=== PATIENT | female | born 1955 | race Caucasian/White ===

== ENCOUNTER → 2017-07-03 | Outpatient (CLI) | payer BC ==
[2017-07-03 17:04] LABS: BASO % 0.4 %; BASO ABS # 0.03 K/uL (0-0.2); COMPLETE YES; EOS % 0.8 %; HEMATOCRIT 39.1 % (37-47); IG% 0.1 %; LYMPH % 41.3 %; LYMPH ABS # 3.29 K/uL (1.2-3.4); MEAN CELL VOLUME 91.8 fL (80-100); MEAN CORPUSCULAR HEMOGLOBIN 31.5 pg (25-34); MEAN CORPUSCULAR HGB CONC 34.3 g/dl (32-36); MONO % 8.7 %; NEUT % 48.7 %; PLATELET COUNT 316 K/uL (130-400); RED BLOOD COUNT 4.26 M/uL (4.2-5.4); WHITE BLOOD COUNT 7.96 K/uL (4.8-10.8)
[2017-07-03 17:17] LABS: ALT/SGPT 16 U/L (12-78); BLOOD UREA NITROGEN 15 mg/dl (7-18); BUN/CREATININE RATIO 26.4 (10-20); CALCIUM 9.5 mg/dl (8.5-10.1); CARBON DIOXIDE 26 mmol/L (21-32); CHLORIDE 104 mmol/L (98-107); CHOLESTEROL 214 mg/dl (0-200); CREATININE 0.56 mg/dl (0.60-1.20); GLUCOSE 96 mg/dl (70-99); POTASSIUM 4.2 mmol/L (3.5-5.1); SODIUM 138 mmol/L (136-145)
[2017-07-03 17:21] LABS: ALB/GLOB RATIO 1.1 (0.9-2); ALKALINE PHOSPHATASE 104 U/L (45-117); AST/SGOT 19 U/L (15-37); CHOLESTEROL/HDL RATIO 2.2; HDL CHOLESTEROL 98 mg/dl; LDL CHOLESTEROL CALCULATED 106 mg/dl; TRIGLYCERIDES 49 mg/dl (0-150); VERY LOW DENSITY LIPOPROT CALC 10 mg/dl
--- NOTE | 2017-07-07 12:53 | CODING QUERY MEDICAL NECESSITY ---
SUPPORTING DIAGNOSIS NEEDED Dr. Hubbard, A supporting diagnosis is required for the test/procedure performed on this patient in order for us to be reimbursed by the patient's insurance. Please provide a supporting diagnosis for the following test/procedure listed below next to the test name along with your signature. *If there is no additional diagnosis for this patient that would support the following test/procedure please document that below next to the test/procedure. Test(s)/Procedure(s) that require a supporting diagnosis: * ([id number]) VITAMIN D ASSAY DIAGNOSIS: * ([id number]) B12 VITAMIN LEVEL DIAGNOSIS: DATE OF SERVICE: 07/03/17 Provider Signature: Date: Thank you Bernardo Ryan [facility] Information Management Once completed, please kindly fax back to [phone] For questions please call [phone]
== END | disposition home or self-care (01) ==
LOC: C.LABBC 12:54
PROVIDERS: ATTEND Internal Medicine
DX: D64.9 Anemia, unspecified (principal); Z13.220 Encounter for screening for lipoid disorders

== ENCOUNTER 2023-06-16 11:11 | Observation (INO) ==
--- NOTE | 2023-06-15 15:58 | Anesthesiology Consultation ---
Date of Service June 15, 2023 Assessment & Plan (1) Encounter for pre-operative examination: - PCP visit (06/14/23): "Patient fell down the stairs last night and landed on the right shoulder and right wrist. The wrist is swollen and bruised. Patient has very little mobility in the right arm. Ordered an xray of the right shoulder and wrist. Discussed that pending the results, will likely refer to ortho or PT. Instructed patient to rest,ice and elevate the wrist and arm.. May use NSAIDS or tylenol" - Infectious disease screening: Per vacuum pan tender on 06/15/23: No known infectious disease contacts or current infectious disease symptoms. No noted Covid positive test result in past 90 days. Chart Review Chart Review: Acceptable Risk for Surgery and Patient NOT seen in Pre Admission Testing History Surgery Operation Date: 06/16/23 13:00 Proposed Procedures p Right Humeral Nail vs Open Reduction Internal Fixation - Demarco Morrison MD Height/Weight Height: 4 ft 10.75 in Weight: 48.534 kg Allergies Allergy/AdvReac Type Severity Reaction Status Date / Time Sulfa (Sulfonamide Allergy Unknown Unknown Verified 06/15/23 14:21 Antibiotics) Medications Home Medications Medication Instructions Recorded Confirmed Last Taken tumeric 100 mg-amaya 150 mg-olive 1 cap PO QDL 02/01/22 06/15/23 Unknown 50 mg-oreg 150 mg-caprylate capsule acetaminophen 325 mg capsule 650 mg PO BID PRN fever #180 caps 01/26/23 06/15/23 Unknown calcium carbonate 600 mg calcium 1,200 mg PO QDL 01/26/23 06/15/23 Unknown (1,500 mg) tablet amoxicillin 500 mg capsule 500 mg PO .COMPLEX #4 caps 03/28/23 06/15/23 Unknown oxycodone-acetaminophen 2.5 mg-325 1 tab PO Q6H PRN pain #4 tabs 06/14/23 06/14/23 Unknown mg tablet (Percocet) cholecalciferol (vitamin D3) 50 2,000 unit PO QDL 06/15/23 06/15/23 Unknown mcg (2,000 unit) capsule cyanocobalamin (vitamin B-12) 100 100 mcg PO QDL 06/15/23 06/15/23 Unknown mcg tablet (Vitamin B-12) folic acid 1 mg tablet 1 mg PO QDL 06/15/23 06/15/23 Unknown thiamine HCl (vitamin B1) 100 mg 100 mg PO QDL 06/15/23 06/15/23 Unknown tablet (Vitamin B-1) Past Medical History Medical History History of quadriplegia Osteoporosis Spinal cord injury, cervical region 8 years ago from fall- states quadraplegic x 8 mo but has since "resolved" following surgery + rehab Urinary incontinence Past Family History Family History Brother Brain tumor Mother Hypertension Father Hypotension Other No family history of adverse response to anesthesia Denies family history of Ovarian cancer Prostate cancer Myocardial infarction Breast cancer Colorectal cancer Past Surgical History Surgical History History of cervical spinal surgery r/t injury from fall 8 years ago. ROM limited side to side per pt report. S/P wrist surgery Fracture repair - Rt Social History Smoking Status: Never smoker Do You Dip or Chew Tobacco: No Hx Alcohol Use: Yes Alcohol type: beer and wine alcohol intake frequency: 0-2 drinks per day Hx Substance Use: No substance use type: does not use Lab Results Anesthesia Preop Results Results Anesthesia Widget: WBC 9.90 K/ul (4.8-10.8) 06/15/23 Hgb 11.3 g/dl (12.0-16.0) L 06/15/23 Hct 32.6 % (37.0-47.0) L 06/15/23 Plt 308 K/uL (130-400) 06/15/23 Na 133 mmol/L (136-145) L 06/15/23 K 3.9 mmol/L (3.5-5.1) 06/15/23 Cl 98 mmol/L (98-107) 06/15/23 CO2 27 mmol/L (21-32) 06/15/23 BUN 17 mg/dl (6-23) 06/15/23 Creat 0.47 mg/dl (0.6-1.2) L 06/15/23 Glucose Level 111 mg/dl (70-99(Fasting)) H 06/15/23 TSH 2.009 uIu/ml (0.300-4.500) 06/15/23 Testing Electrocardiogram Date: 06/15/23 Findings: + NSR @ (39)
[~2023-06-16 11:11] MED LIST: LACTATED RINGER'S 1,000 ML IV SCH; LR 15ML/HR IV SCH; ROPIVACAINE 0.5% 5 MG/ML 30 ML VIAL ONE; ceFAZolin 2000MG 2,000 MG/15 ML SYR IV SCH
[2023-06-16] MEDS ORDERED: fentaNYL citrate PF 100 MCG/2 ML VIAL IV PRN (12:28)
[2023-06-16] MEDS ORDERED: PROMETHAZINE HCL 6.25 MG in SODIUM CHLORIDE 0.9% 50 ML IV PRN (12:28)
[2023-06-16] MEDS ORDERED: ONDANSETRON INJ 2 MG/ML 2 ML VIAL IV PRN ×2 (12:28→18:37)
[2023-06-16] MEDS ORDERED: ATROPINE SULFATE 0.1 MG/ML 10ML SYR IV PRN (12:28)
[2023-06-16] MEDS ORDERED: ePHEDrine sulfate 50 MG/ML AMP IV PRN (12:28)
[2023-06-16] MEDS ORDERED: PHENYLEPHRINE HCL 10 MG/ML VIAL ONE (12:33)
[2023-06-16] MEDS ORDERED: ONDANSETRON INJ 2 MG/ML 2 ML VIAL ONE (12:33)
[2023-06-16] MEDS ORDERED: PROPOFOL IV EMULSION 10 MG/ML 20 ML VIAL IV ONE (12:33)
[2023-06-16] MEDS ORDERED: DEXAMETHASONE SOD INJ 4 MG/ML VIAL ONE (12:33)
[2023-06-16] MEDS ORDERED: LIDOCAINE 2% 2 ML VIAL/AMP(20MG/ML) INFIL ONE (12:33)
[2023-06-16] MEDS ORDERED: ROCURONIUM BROMIDE 10 MG/ML 5 ML VIAL IV ONE (12:33)
[2023-06-16] MEDS ORDERED: fentaNYL citrate PF 100 MCG/2 ML VIAL ONE ×3 (12:34→16:55)
[2023-06-16] MEDS ORDERED: MIDAZOLAM HCL 1 MG/ML 2ML VIAL ONE ×2 (12:34→12:52)
--- NOTE | 2023-06-16 12:54 | History & Physical Bridge Note ---
Date of Service June 16, 2023 History & Physical Bridge Note I have examined the patient, reviewed the History & Physical and in the interval since the performance of the History & Physical I have noted the following changes of clinical significance: no changes noted
[2023-06-16] MEDS ORDERED: TRANEXAMIC ACID / 0.7% NACL 1000MG/100ML BAG IV ONE (13:26)
--- NOTE | 2023-06-16 16:49 | Operative Report ---
Post Operative Report Pre & Post Diagnosis Operation Date: 06/16/23 13:00 Pre-Op Diagnosis: Fracture of Humerus, Proximal, Right Closed Post-Op Diagnosis: Fracture of Humerus, Proximal, Right Closed I identified the patient and participated in the time-out.: Yes Procedure Operation Date: 06/16/23 13:00 Actual Procedures p Short multi lock nail right proximal humerus fracture(Right) - Demarco Morrison MD Surgeon Demarco Morrison MD Specialty Plant Supervisor Sang Vera fellow Estimated Blood Loss 10 Findings Consistent with Post-Op Diagnosis Specimens None Anesthesia Type General Regional Complications none Disposition Accompanied Patient To Recovery: No Disposition: Recovery Room Indications Marium is 67. She has osteoporosis. She has also had a C4 quadriplegia secondary to cervical spinal stenosis and a fall. She had cervical decompression and fusion and made a miraculous recovery. She still has some left-sided motor deficits and spasticity. She fell several days ago going down the steps injuring her right shoulder. She has a widely displaced and comminuted fracture involving the surgical neck of the right humerus. Her treatment options were discussed. I recommended operative intervention in the form of a nail. She agreed to proceed. Description of Procedure Informed consent. Patient identified. She identified the operative site as the right shoulder. I marked with my initials. Preoperative surgical timeout was performed. A preop dose of IV antibiotics was given. She was taken to the operating room where the anesthetic was administered. She was then positioned on the radiolucent Adi table with the right side elevated towards lateral about 45 degrees. Axillary roll inserted. Bony prominences of both lower extremities were inspected and padded. DVT prophylaxis with foot pumps and postoperatively early mobility. The torso was secured to the table. Hinckley bolsters were applied along her backside to support her. Fluoroscopic imaging was then obtained to document the ability to get the Grashey AP and transscapular view of the right shoulder. The arm was then scrubbed and then prepped and draped in the usual sterile fashion. There was swelling and bruising of the right arm area. TXA given. Fluoroscopic guidance was utilized throughout the surgical procedure. I made an incision beginning just anterior to the AC joint on the top of the acromion and extending anteriorly towards the deltopectoral interval. Subcutaneous flaps were elevated at the level of the deltoid fascia. I then split the fascia midway between the anterior acromion and the AC joint and bluntly divided the deltoid muscle along the line of its fibers for about a distance of 4 cm. Bursa removed. I then put a traction stitch into the rotator cuff tissue which was robust. This helped to take the head out of abduction. I then used a spinal needle to gauge the starting hole. I still needed to be a little bit more medial and posterior. I then under fluoroscopic guidance inserted to 2 mm K wires 1 anterior and 1 posterior heading at superior to inferior angle about 30 degrees. By pulling on these towards the feet and twisting I was able to derotate the humeral head. To fully access this area I had to elevate half centimeter of the deltoid and remove a couple millimeters of the anterior acromion in order to get the right trajectory. The guidepin was introduced at the center of the humeral head apex on both the AP and lateral views and advanced parallel to the shaft. Of note once she was relaxed with paralytic the fracture reduced very easily. After confirming placement of the guidepin it was overreamed and then the long guidewire was inserted. This was confirmed to be intramedullary in multiplanar fluoroscopy. I then assembled inserted the short Synthes multi lock nail under hand power. Prior to this I passed the 9 mm reamer confirming adequate space for the mckenzie. The mckenzie was countersunk about 5 mm. This was verified by using the lateral pin and checking fluoroscopically. I was able to insert my finger through the splint in the anterior deltoid and identify the bicipital tuberosity. I then rotated the insertion apparatus so that the anterior pin would enter the humerus just lateral to the biceps groove. A guidepin was then introduced to hold the mckenzie in position. I then inserted the lateral screw. Screw technique was to incise the skin at the level of the trocar plan I dissected bluntly dissect down to the bone and advanced the trocar to the bone and then advanced the drill to the far cortex without perforating it. A screw of several millimeters shorter than what was measured was then inserted. This was done for the lateral and posterior screws however the anterior screw was more challenging because of the significant comminution and bone void posteriorly. I had to estimate screw length which was probably shorter than it could have been but I went shorter to be safe. The fracture was well aligned and there was good bony apposition. The distal interlocks were then inserted using the distal interlocking insertion guide through percutaneous incisions using the same technique. Screw position distally was confirmed in multiplanar fluoroscopy. The proximal jig was removed. The humeral head was then rotated in both the AP and lateral planes and screw length was checked and confirmed to be within the bone and not violating the joint surface. The proximal apparatus was removed and a 2 mm endcap was inserted. The end cap was visually confirmed to be below the level of the subchondral bone when fully inserted. I double checked for tightness. Hardware was in good position. The fracture was well reduced and stable. All wounds were copiously irrigated with sterile saline. The percutaneous screw incisions were closed with 3-0 Vicryl for the dermal layer and herb on the skin. The deltoid split became a little longer than 4 cm. Partly I think because of the anterior screw. That insertion and dissection may have opened the lower part of the deltoid in the same plane. I did not directly palpate the axillary nerve. I then went ahead and carefully reapproximated the deltoid with interrupted #1 Vicryl. Proximally I reapproximated the half centimeter I detachment the deltoid with a #1 Ethibond on an os for needle using a suture passed through the acromion bone. This was further reinforced with interrupted #1 Vicryl's and a running #1 Vicryl as well. Skin was then closed with 3-0 Vicryl and herb. The rotator cuff was closed prior to more superficial layers by reapproximating the 2 traction stitches that I had previously applied and tying them. Then I then applied a medial and lateral Ethibond [id number] stitch for a watertight closure. The rotator cuff was split in line with its fibers. The arm was cleaned with wet and dry sponges and a soft sterile dressing was applied Xeroform 4 x 4's ABD including the armpit and foam tape. A full-length Masoud wrap from the hand up to the upper arm was then applied and a wrist brace was reapplied. She had injured her wrist. X-rays were negative. For precaution I was continuing to apply a brace. Patient was wake from anesthesia difficulty and taken to the recovery room in stable condition. There were no specimens or complications. Counts were correct and blood loss is estimated to be 20 cc. At the conclusion the operation spoke to patient's informed of my findings postop instructions were given. Plan is to admit her to the hospital overnight for pain control. Arm in the sling. We will get her doing active movement of elbow and some shoulder pendulums. Gas Inspector fluoroscopic images were obtained. After the endcap was inserted but after the wounds were entirely closed except for the herb I got an Grashey view as I did not have one with the mckenzie insertion apparatus attached. The end cap was then placed but may not of been fully seated. Is possible that it may have been cross threaded. I was reassured because a double checked for tightness and visually observed that it was both below the subchondral bone. I elected to leave as is. The components inserted were the Synthes 8 mm titanium multi lock proximal right nail 160 mm of length. There are 3 proximal multi lock screws a 2 mm end cap and 2 distal interlocking screws. The proximal screws were checked in multiplanar fluoroscopy to ensure that they were seated both laterally and did not violate the joint. I attest to the content of the Intraoperative Record and any orders documented therein. Any exceptions are noted below.
--- NOTE | 2023-06-16 17:06 | Operative Report ---
Post Operative Report Pre & Post Diagnosis Operation Date: 06/16/23 13:00 Pre-Op Diagnosis: Fracture of Humerus, Proximal, Right Closed Post-Op Diagnosis: Fracture of Humerus, Proximal, Right Closed I identified the patient and participated in the time-out.: Yes Procedure Operation Date: 06/16/23 13:00 Actual Procedures p Right Proximal Humerus Fracture Ladarius Placement(Right) - Demarco Morrison MD Surgeon Demarco Morrison MD Official Greeter Sang Vera fellow Estimated Blood Loss 10 Findings Consistent with Post-Op Diagnosis Same as postop diagnosis. Specimens None Description of Procedure See detailed postoperative note. I attest to the content of the Intraoperative Record and any orders documented therein. Any exceptions are noted below.
--- NOTE | 2023-06-16 17:17 | Fluoroscopy Report ---
FL shoulder RT min 2V CLINICAL HISTORY: RIGHT PROXIMAL HUMERUS FX VS ORIF COMPARISON STUDY: 06/15/2023 radiographs FLUOROSCOPY TIME: 2 minutes and 12.5 seconds FLUOROSCOPY IMAGES: 9 EXPOSURE DOSE: 13.65 mGy FINDINGS: Open reduction and internal fixation. Placement of an elongated medullary mckenzie with fixation screws within the humerus. There is improved alignment of the acute and comminuted proximal humeral fracture. Several millimeters of displacement noted involving a few fracture fragments. IMPRESSION: Fluoroscopic assistance as above. ACT 112: Negative or not required by law. Electronically signed by: Harsh Hayes M.D. 06/16/2023 5:16 PM
--- NOTE | 2023-06-16 17:40 | Anesthesiology Progress Note ---
Date of Service June 16, 2023 Anesthesia Post Procedure Vital Signs Vital Signs: Temp Pulse Pulse Resp BP Pulse Ox O2 Del Method 06/16/23 17:20 86 19 162/84 H 97 Room Air 06/16/23 17:30 83 22 169/61 H 97 Room Air 06/16/23 17:10 80 16 159/75 H 100 Oxymask 06/16/23 17:03 36.0 C L 81 16 130/103 H 100 Oxymask 06/16/23 11:58 37.0 C 87 18 146/71 H 99 Room Air O2 Flow Rate 06/16/23 17:20 06/16/23 17:30 06/16/23 17:10 4 06/16/23 17:03 6 06/16/23 11:58 Transfer of Care Handoff Completed per policy Notes Mental Status: alert / awake / arousable Patient Amnestic to Procedure: Yes Nausea / Vomiting: adequately controlled Pain: adequately controlled Airway Patency, RR, SpO2: stable & adequate BP & HR: stable & adequate Hydration State: stable & adequate Anesthetic Complications: no major complications apparent
[2023-06-16] MEDS ORDERED: bisacodyL 10 MG SUPP PR PRN (18:37)
[2023-06-16] MEDS ORDERED: ACETAMINOPHEN 500 MG TAB PO PRN (18:37)
[2023-06-16] MEDS ORDERED: KETOROLAC TROMETHAMINE 15 MG/ML VIAL IV PRN (18:37)
[2023-06-16] MEDS ORDERED: ALUMINUM/MAGNESIUM SUSP 30 ML UDC PO PRN (18:37)
[2023-06-16] MEDS ORDERED: oxyCODONE HCL IR 5 MG TAB (IMMEDIATE RELEASE) PO PRN (18:37)
[2023-06-16] MEDS ORDERED: NALOXONE HCL 0.4 MG/1 ML VIAL/CARP IV PRN (18:37)
[2023-06-16] MEDS ORDERED: METOCLOPRAMIDE HCL INJ 5 MG/ML 2 ML VIAL IV PRN (18:37)
[2023-06-16] MEDS ORDERED: MAGNESIUM HYDROXIDE SUSP 30 ML UDC PO PRN (18:37)
[2023-06-16] MEDS ORDERED: HYDROmorphone INJ 0.5 MG/0.5 ML SYR IV PRN (18:37)
[2023-06-16] MEDS: SODIUM CHLORIDE 0.9% 1,000 ML IV SCH (18:47)
[2023-06-16] MEDS: DOCUSATE SODIUM 100 MG CAP PO SCH (20:29)
[2023-06-16] MEDS ORDERED: SENNA 8.6 MG TAB PO SCH (21:00)
[2023-06-16] MEDS: ceFAZolin 1000MG 1,000 MG/7.5 ML SYR IV SCH (22:16)
[2023-06-16] MEDS ORDERED: TRANEXAMIC ACID / 0.7% NACL 1,000 MG/100 ML BAG IV SCH (23:15)
[2023-06-17] MEDS: traMADol HCL 50 MG TABLET PO PRN ×2 (04:34→11:50)
[2023-06-17] MEDS: SODIUM CHLORIDE 0.9% 1,000 ML IV SCH (05:52)
[2023-06-17] MEDS: ceFAZolin 1000MG 1,000 MG/7.5 ML SYR IV SCH (06:25)
[2023-06-17] MEDS: DOCUSATE SODIUM 100 MG CAP PO SCH (07:49)
--- NOTE | 2023-06-17 08:02 | Orthopedic Progress Note ---
Date of Service June 17, 2023 Assessment & Plan (1) Spinal cord injury: (2) Proximal humerus fracture: Plan: Doing well. She will have PT and OT today. If she does well and her pain is controlled will consider discharge. She will follow-up in 2 weeks with me and begin physical therapy as scheduled. In the meantime she can do active movement of her hand and movement of her elbow. Her wrist will remain in the brace and the arm will be in the sling. She is not to do any active moving or twisting of the shoulder. She will need to take a sponge bath. Elevate ice. She responded well to all TRAM in terms of pain control I will send that into her pharmacy. Stool softeners recommended. If there is any problems with severe pain swelling fevers numbness or any other issues please go to the ER or call my office. Surgical results were discussed. CBC pending Admission and Anticipated Discharge Date Admission Date: June 16, 2023 Subjective Some pain overnight controlled with Ultram. Otherwise no major issues. Physical Exam Physical Exam: Mild swelling of the fingers. Capillary refill less than 2 seconds. She has 5- out of 5 motor function for median radial and ulnar. She can activate elbow flexion. She can contract her deltoid. There is a dressing over top of the lateral shoulder but she can feel pressure there. She can wiggle her fingers. Dressings clean dry intact. Sling in place. Results & Data Vital Signs (Past 12 Hours) Vital Signs Temp Pulse Resp BP Pulse Ox O2 Del Method 06/17/23 07:55 36.8 C 75 16 127/65 97 Room Air 06/17/23 03:11 36.3 C L 82 18 141/53 H 95 Room Air 06/17/23 00:10 37.2 C 72 16 119/69 98 Room Air 06/16/23 20:30 Room Air 06/16/23 20:08 36.8 C 101 H 16 103/51 L 98 Room Air
[2023-06-17] MEDS ORDERED: MULTIVITAMIN TAB PO SCH (09:00)
[2023-06-17 09:02] LABS: Hematocrit (blood only) 23.9 % (37.0-47.0); Hemoglobin 8.2 g/dl (12.0-16.0); Mean Corpuscular Hemoglobin 33.1 pg (25.0-34.0); Mean Corpuscular Hgb Conc 34.3 g/dL (32.0-36.0); Mean Corpuscular Volume 96.4 fL (80.0-100.0); Mean Platelet Volume 10.2 fL (9.4-12.4); Platelet Count 246 K/uL (130-400); RDW Coefficient of Variation 12.3 % (11.5-14.5); RDW Standard Deviation 42.8 fL (36.4-46.3); Red Blood Count 2.48 M/uL (4.20-5.40); White Blood Count 9.95 K/ul (4.8-10.8)
--- NOTE | 2023-06-20 13:25 | Discharge Summary ---
Date of Service June 20, 2023 Admission HPI Per Admitting Provider Marium is 67 years old. She fell and sustained a comminuted fracture of her right proximal humerus surgical neck. I have recommended operative intervention. Principal Diagnosis Right proximal humerus fracture Discharge Data Allergies Allergy/AdvReac Type Severity Reaction Status Date / Time Sulfa (Sulfonamide Allergy Unknown Unknown Verified 06/16/23 11:53 Antibiotics) Procedures Performed Operation Date: 06/16/23 13:00 Actual Procedures p Right Proximal Humerus Fracture Ladarius Placement(Right) - Demarco Morrison MD Ordered Studies 06/16/23 05:00 US - OR guided needle placemen Routine 06/16/23 06:47 FL shoulder RT min 2V Routine Hospital Course (1) Proximal humerus fracture: Plan Marium was admitted to the hospital after a short multi lock Synthes nail was used to address her right proximal humerus fracture.Postoperatively her pain was well controlled. She was neurovascularly intact. She also has an injury to her right wrist which was supported with a wrist orthosis.She was neurovascularly intact. Dressing was intact. She had a sling. She was able to ambulate. Total Time Total Time Spent Total Time Spent (In Minutes): 15Minutes Discharge Plan Discharge Items Patient Disposition: Home - Self-Care Reason For Visit: Fracture of Humerus, Proximal, Right Closed Discharge Diagnosis: Right proximal humerus fracture. History of quadriparesis Condition on Discharge: Good Goals: Healed fracture. Patient's safety. Activity: Per Instructions section Activity Comment: Sleep in a more upright position. Wear the sling and brace. Leave the dry Lifting: None Bathing Comment: Sponge bath Sexual Activity: Wait until after follow-up appointment Exercise/Sports: None Driving/Machine Use: No driving Non-emergency contact: Surgeon Call non-emergency contact if: you have any medication questions, your symptoms worsen, your pain is not controlled, your pain is worsening, your pain is concerning for you, you have a fever, your rectal temperature is above 100.4 and your wound pain has increased Follow-up/Referrals: ProJohnathan MD [Primary Care Provider] - Diet: Regular Addtl Attending Provider Instructions: DIET: * Resume previous diet. MEDICATIONS: * Please take your prescriptions as instructed at your pre-op appointment and/or see medication discharge instructions listed above. * If concerns develop, call your physician's office at . SPECIAL CARE INSTRUCTIONS: * Ice/Elevate as instructed. * Keep dressing clean, dry, intact. * Your surgical extremity may be discolored due to prepping agents used on the skin. A bluish-green tint is a normal variant and should not cause alarm. Call your doctor at [phone] if: * Temperature above 101 degrees * Pain not relieved by pain medicine ordered * There is increased drainage or redness from any incision * You have any unanswered questions, problems or concerns. FOLLOW UP VISIT: * If not already scheduled, please call the office at to schedule a follow-up appointment. Pending Studies at Discharge: No Medications and DC Order Prescriptions: New tramadol 50 mg Tablet 50 - 100 mg PO Q6H PRN (Reason: pain) Qty: 20 0RF Continued amoxicillin 500 mg capsule 500 mg PO .COMPLEX Qty: 4 3RF Rx Instructions: 500 mg PO 4 tablets one hour prior to procedure ; calcium carbonate 600 mg calcium (1,500 mg) tablet 1,200 mg PO QDL acetaminophen 325 mg capsule 650 mg PO BID PRN (Reason: fever) Qty: 180 3RF mlmgdun-ajes-jzfwd-oreg-capryl 100 mg-150 mg- 50 mg-150 mg capsule 1 cap PO QDL cyanocobalamin (vitamin B-12) [Vitamin B-12] 100 mcg tablet 100 mcg PO QDL thiamine HCl (vitamin B1) [Vitamin B-1] 100 mg tablet 100 mg PO QDL folic acid 1 mg tablet 1 mg PO QDL cholecalciferol (vitamin D3) 50 mcg (2,000 unit) capsule 2,000 unit PO QDL Discontinued oxycodone-acetaminophen [Percocet] 2.5-325 mg tablet 1 tab PO Q6H PRN (Reason: pain) Qty: 4 0RF Rx Instructions: post-op med. Discharge Orders: Discharge Order (Routine); Ordered 06/17/23 Ordered By: Demarco Morrison Admission Data Admit Date/Time: 06/16/23 17:09 Attending Provider: Demarco Morrison Admit Provider: Demarco Morrison Primary Care Provider: Johnathan Hubbard Other Interventions: Discharge Summary Assessment (RN) Last Done: 06/17/23 11:57
== END 2023-06-17 14:14 | disposition home or self-care (01) ==
LOC: ASU 11:11 → 3N 11:11
DX: Z88.2 Allergy status to sulfonamides; W10.9XXA Fall (on) (from) unspecified stairs and steps, initial encounter; Z79.899 Other long term (current) drug therapy; S42.201A Unspecified fracture of upper end of right humerus, initial encounter for closed fracture